=== PATIENT | male | born 1940 | race African-American/Black ===

== ENCOUNTER 2017-12-22 03:38 | Inpatient (IN) | payer OTHER ==
[~2017-12-22] VITALS: Ht 177.8 cm; Wt 106.6 kg
[~2017-12-22 03:38] MED LIST: EXTRA STRENGTH500 MG PO; NEXIUM40 M1 PO
--- NOTE | 2017-12-22 12:17 | Operative Report ---
Operative/Inv Procedure Report Surgery Date: 12/22/17 Name of Procedure: 1. Left total knee replacement 2. Right knee cortisone injection Pre-Operative Diagnosis: Bilateral primary knee DJD Post-Operative Diagnosis: Same Estimated Blood Loss: 50ml to 100ml Surgeon/Radiation Therapy Technician: Ace MCMULLEN,Nura Nixon Anesthesia: block Operative/Procedure Note Note: Description of Procedure: The patient was taken to the operating room and positively identified. After induction of spinal anesthesia and administration of appropriate pre-operative antibiotics, the patient was positioned supine on the operating room table and all bony prominences were well padded. The right knee was prepped sterilely and injected with a mixture of 2 mL of Depo -Medrol and 6 mL of half percent Marcaine. A Band-Aid was placed over the injection site and attention was then turned to the contralateral limb. A well-padded pneumatic tourniquet was placed on the left upper thigh. After performing a surgical timeout, the left lower extremity was prepped and draped in the usual sterile fashion. After exsanguination with Esmarch the tourniquet was inflated to 250mm of mercury. A standard medial parapatellar approach was made to the knee. This was carried down through skin and subcutaneous tissue to the level of the fascia. Meticulous hemostasis was maintained with Bovie electrocautery. The extensor mechanism and patellar retinaculum were opened sharply and the patella was everted. The infrapatellar fat was resected in order to improve exposure. Osteophytes were trimmed from the patella and femoral condyles and the patella was re-everted and tucked laterally. A medial release was performed and the cruciate ligaments were resected. The tibia was then subluxed anteriorly. Utilizing the appropriate extra-medullary guide, the proximal tibia was trimmed perpendicular to the long axis of the tibial shaft. Attention was then turned to the femur. After opening the medullary canal, the distal femoral cut was made in 6 degrees of valgus utilizing the appropriate intra-medullary guide. The extension gap was checked and found to be appropriate. The femur was then sized and the remainder of the femoral cuts were made with a size #4 4-in-1 femoral cutting guide. The flexion gap was checked and found to be symmetric and appropriate. The knee was then trialed with a size #4 femoral component, a size 5 tibial component and a size 13 mm polyethylene insert. The patella was trimmed to accept an A 35 patella. This yielded excellent range of motion, stability and patellar tracking. All trial components were removed and the knee was copiously irrigated with sterile saline. All components were cemented into place with [place] Simplex cement. All the components were of the Side.Cr Triathlon knee system of the above stated sizes. The knee was again irrigated after cementation. The extensor mechanism and patellar retinaculum were repaired using interrupted #1 vicryl suture. The skin was re-approximated with 2-0 vicryl and closed with harsh. A sterile dressing was applied, the tourniquet was deflated, the patient was awakened and taken to the recovery room in satisfactory condition.
--- NOTE | 2017-12-22 12:22 | Admission Core Measures ---
Acute Coronary Syndrome (CM) ACS Core Measures Acute Coronary Syndrome Diagnosis No Congestive Heart Failure (NEW) CHF Core Measures Congestive Heart Failure Diagnosis No Cerebrovascular Accident CVA Core Measures CVA/TIA Diagnosis No Venous Thromboembolism VTE Core Man (View Protocol) VTE Risk Factors Surgery No Mechanical VTE Prophylaxis d/t N/A MechProphylax Ordered No VTE Pharm Prophylaxis d/t NA PharmProphylax ordered Problem List As ranked by this Provider includes Assessment & Plan 1. Unilateral primary osteoarthritis, left knee HOME MEDS Home Med List Acetaminophen (Extra Strength Non-Aspirin) 500 MG TABLET 2 TAB PO PRN PAIN ( Reported) Esomeprazole (Nexium) 40 MG CAPSULE.DR 1 CAP PO DAILY GI (Reported)
[2017-12-22] MEDS ORDERED: ASPIRIN EC325 M2 PO (12:24)
[2017-12-22] MEDS ORDERED: DILAUDID2 M1 PO (12:24)
[2017-12-22] MEDS ORDERED: MIRALAX17 G1 PO (12:24)
[2017-12-22] MEDS ORDERED: COLACE100 M1 PO (12:24)
--- NOTE | 2017-12-22 12:28 | Patient Discharge Instructions ---
Discharge Instructions General Discharge Information You were seen/treated for: Left knee pain related to unilateral primary osteoarthritis You had these procedures: Left total knee replacement Watch for these problems: Increasing pain despite the use of pain medication Increasing redness, warmth or swelling Drainage of any type from incision Inability to bear weight on operative leg Persistent nausea and vomiting Fever greater than 101.5 degrees Do not soak the wound: Yes No bath, but you may shower: Yes Other wound care: Please keep wound clean and dry. No ointments or lotions of any type on or near incision at any time. No exceptions. Your dressing will be changed by your nurse on the second day after your surgery. Daily dry dressing changes are recommended each day thereafter. Do not soak your wound in a bath at any time until otherwise indicated by your surgeon. You may shower, please dry wound immediately after shower with a clean towel. Special Instructions: Aspirin: You are taking this medication to help prevent blood clot formation. Please take with food to protect your stomach lining. Please take as directed. Constipation: Pain medication can cause constipation. Dr. Bello has recommended that you take Colace and miralax each day. You may discontinue this medication if you develop loose stool or diarrhea. If you wish to continue this medication, it is available over the counter. If you are unable to move your bowels after several days, if you are unable to pass gas and are developing bloating, nausea, or vomiting as a result, please contact your doctor. Activity Full Activity/No Limits: No Activity Self Limited: Yes Pounds, do NOT lift more than: 10 Acute Coronary Syndrome Inclusion Criteria At DC or during hospital stay patient has or had the following: ACS DIAGNOSIS No Discharge Core Measures Meds if any: Prescribed or Continued at Discharge Meds if any: NOT Prescribed or Continued at Discharge Congestive Heart Failure Inclusion Criteria At DC or during hospital stay patient has or had the following: CHF DIAGNOSIS No Discharge Core Measures Meds if any: Prescribed or Continued at Discharge Meds if any: NOT Prescribed or Continued at Discharge Cerebrovascular accident Inclusion Criteria At DC or during hospital stay patient has or had the following: CVA/TIA Diagnosis No Discharge Core Measures Meds if any: Prescribed or Continued at Discharge Meds if any: NOT Prescribed or Continued at Discharge Venous thromboembolism Inclusion Criteria VTE Diagnosis No VTE Type NONE VTE Confirmed by (Test) NONE Discharge Core Measures - Per Current guidelines, there needs to be overlap - treatment for the first 5 days of Warfarin therapy. - If discharged on Warfarin prior to 5 days of - overlap therapy, the patient will need to be - assessed for post discharge needs including - *Post discharge parental anticoagulation - *Warfarin and/or parental anticoagulation education - *Follow up date to check INR post discharge At least 5 days overlap therapy as Inpatient No Meds if any: Prescribed or Continued at Discharge Note: Overlap Therapy is Warfarin and Anticoagulant Meds if any: NOT Prescribed or Continued at Discharge
--- NOTE | 2017-12-22 12:30 | Surgical Discharge Summary ---
Visit Information Visit Dates Admission Date: 12/22/17 Discharge Date: 12/24/17 History of Present Illness Chief Complaint: Left knee pain related to unilateral primary osteoarthritis Medical History Isolation History: Standard Surgical History Pertinent Surgical History: non-contributory Review of Systems: See H&P Hospital Course Course Attending Physician: Nura Bello MD Primary Care Physician: Joe Walker MD Hospital Course: Patient was admitted to the hospital for an elective total joint replacement. The procedure was tolerated well and patient was transferred to a general surgical floor. Diet was advanced and tolerated. The patient was evaluated and treated by physical therapy. At the time of hospital discharge, the vital signs were stable, neurovascular status was intact, and pain was controlled with the use of oral pain medications. Allergies: Coded Allergies: No Known Allergies (12/21/17) Significant Procedures: left total knee arthroplasty Disposition Summary Disposition Principal Diagnosis: Left knee unilateral primary osteoarthritis Additional Diagnosis: None Discharge Disposition: home health services Discharge Instructions General Discharge Information Code Status: Full Code Patient's Diet: Regular, advance as tolerated Patient's Activity: WBAT Follow-Up Instructions/Appts: Follow up with Dr. Bello in 6 weeks from date of surgery, please call office to arrange/confirm this appointment Medications at Discharge Discharge Medications: Continue taking these medications: Esomeprazole (Nexium) 40 MG CAPSULE.DR 1 Capsule ORAL DAILY Acetaminophen (Extra Strength Non-Aspirin) 500 MG TABLET 2 Tablet ORAL as needed for PAIN Start taking the following new medications: Aspirin (Ecotrin*) 325 MG TABLET.DR 1 Tablet ORAL TWICE DAILY Qty = 60 No Refills Hydromorphone HCl (Dilaudid) 2 MG TABLET 1-2 Tablet ORAL EVERY 4-6 HOURS NEEDED as needed for PAIN Qty = 36 No Refills Docusate Sodium (Colace) 100 MG CAPSULE 1 Capsule ORAL TWICE DAILY Qty = 14 No Refills Instructions: DISCONTINUE USE IF YOU DEVELOP LOOSE STOOL OR DIARRHEA Polyethylene Glycol 3350 (Miralax) 17 GRAM POWD.PACK 1 Packet ORAL DAILY Qty = 7 No Refills Instructions: dissolve in water, DISCONTINUE USE IF YOU DEVELOP LOOSE STOOL OR DIARRHEA
--- NOTE | 2017-12-22 15:19 | PN- Orthopedic ---
See Addendum Subjective Subjective: Postop check: Patient resting comfortably, no complaints Objective Vital Signs and I&Os Intake & Output 12/22 1600 12/22 0812/22 0000 12/21 0812/21 0000 Intake Total Output Total Balance Patient 225 lb Weight Vital signs stable, afebrile Physical Exam: Well-developed well-nourished no apparent distress. HEENT: Atraumatic, extraocular motion intact Neck: Supple, no lymphadenopathy Respiratory: No respiratory distress Extremities: No edema LEFT lower extremity dressing in place, clean dry and intact Compression wrap in place. ALPS in place Neurovascularly intact distally Bilateral calves are supple, nontender. Neuro: Alert and oriented x3 Psych: Mood affect normal, normal memory normal judgment. Skin: Warm and dry, no rash on exposed skin Assessment/Plan Assessment/Plan postop day #0 status post left total knee arthroplasty Perioperative antibiotics. Pain medication as needed. Out of bed Physical therapy, weightbearing as tolerated IV fluids Regular diet Follow a.m. labs Aspirin for DVT prophylaxis ALPS for DVT prophylaxis Regular home meds Dressing change postop day 2 Core Measures Venous Thromboembolism VTE Risk Factors Surgery No Mechanical VTE Prophylaxis d/t N/A MechProphylax Ordered No VTE Pharm Prophylaxis d/t NA PharmProphylax ordered
[2017-12-22 16:00] VITALS: BP 120/90
--- NOTE | 2017-12-22 16:42 | PN- Student ---
Trae Liao 12/22/17 1619: Subjective Subjective: POST OP CHECK PATIENT REPORTS FEELING PROGRESSIVE SORENESS OF LEFT KNEE. PAITENT REPORTS LIMITED FEELING IN LEFT LOWER EXTREMITY. PAITENT DENIES NAUSEA, VOMITING, SHORTNESS OF BREATH, CHEST PAIN OR PALPITATIONS. Objective Objective: GENERAL: NO ACUTE DISTRESS, PAITIENT ORIENTED TO TIME AND PLACE CHEST: S1 AND S2 HEARD PULMONARY: LUNGS CLEAR BILATERALLY EXTREMITIES:RANGE OF MOTION OF LEFT KNEE 0 TO 45 DEGREES. 4/5 STRENGTH OF LEFT KNEE AND HIP WITH STRAIGHT LEG RAISE. 4/5 STRENGTH WITH PLANTAR AND DORSI FLEXION OF FOOT. CAPILLARY REFILL 2 SECONDS IN LEFT TOES. GROSS SENSATION OF LOWER EXTREMITIES INTACT BILATERALLY. FULL RANGE OF MOTION AND 5/5 MOTOR STRENGTH WITH STRAIGHT LEG RAISE AND DORSIFLEXION IN RIGHT LEG. DORSALIS PEDIS AND POSTERIOR TIBALIS PULSE INCTACT ON RIGHT FOOT. CALVES SOFT AND NONTENDER BILATERALLY DRESSING IS CLEAN AND DRY. Results Results: VITALS BP: 138/80 HR: 70 RR: 20 o2 SAT: 96% ON 2L TEMP: 96.8 Assessment/Plan Assessment: LIVTIENT IS A 77 YEAR OLD MALE POST OP DAY 0 FOR LEFT TOTAL KNEE REPLACEMENT PAST MEDICAL HISTORY OF DEGENERATIVE JOINT DISEASE, PROSTATE CANCER, GI BLEED 30 YEARS AGO PATIENT IS DOING WELL Plan: CONTINUE ALPS AND ASPARIN FOR DVT PROPHYLAXIS CONTINUE PAIN CONTROL REGMINE CONTINUE CEFAZOLIN 2GM Q8 HOURS FOR 2 BAGS CONTINUE DEXAMETHASONE AND OR ZOFRAN FOR NAUSEA STOMACH PROPHYLAXIS SECONDARY TO HISTORY OF GI BLEED WEIGHT BEARING TOLERATED ACTIVITY OUT OF BED WITH ASSISTANCE Justyna Ayoub 12/24/17 0930: Assessment/Plan Assessment: pt seen by pa team, not by myself, please refer to orthopedic progress note
[2017-12-22 23:20] VITALS: BP 110/65
[2017-12-23 06:40] VITALS: BP 112/72
[2017-12-23 08:06] LABS: ABSOLUTE BASOPHIL COUNT 0 /CUMM (0.0-0.2); ABSOLUTE EOSINOPHIL COUNT 0 /CUMM (0.0-0.7); ABSOLUTE GRANULOCYTE CT 7.1 /CUMM (1.4-6.5); ABSOLUTE LYMPH COUNT 1.6 /CUMM (1.2-3.4); ABSOLUTE MONOCYTE COUNT 0.6 /CUMM (0.10-0.60); BASOPHIL % 0.2 % (0.0-2.0); EOSINOPHIL % 0 % (0-5); GRANULOCYTE % 76.1 % (42.2-75.2); HEMATOCRIT 33.7 % (42-52); MEAN CORPUSCULAR HGB 30.4 PG (27.0-31.0); MEAN CORPUSCULAR HGB CONC 33.9 G/DL (33.0-37.0); MEAN CORPUSCULAR VOLUME 89.6 FL (80.0-94.0); PLATELET COUNT 213 /CUMM (130-400); RBC DISTRIBUTION WIDTH 13.9 % (11.5-14.5); RED BLOOD CELL CT 3.76 /CUMM (4.70-6.10); WHITE BLOOD CELL COUNT 9.3 /CUMM (4.8-10.8)
--- NOTE | 2017-12-23 09:58 | PN- Orthopedic ---
Subjective Subjective: pod#1 s/p keft tka rr called for near syncope according to nurse had jsut received morphine for pain now awake alert conversive denies cp, sob, no n+v ekg done at bedside unchanged fro preop ekg troponin pending Objective Vital Signs and I&Os Vital Signs Date Time Temp Pulse Resp B/P B/P Pulse O2 O2 Flow FiO2 Mean Ox Delivery Rate 12/23 0826 74 112/72 / 0640 98.2 74 20 112/72 94 Room Air / 2320 98.0 83 20 110/65 95 Room Air / 1600 97.7 62 18 120/90 96 Room Air Intake & Output 12/23 1600 12/23 0800 12/23 0000 12/22 1600 12/22 0800 12/22 0000 Intake Total 600 300 Output Total 900 350 Balance -300 -50 Intake, IV 600 300 Output, Urine 900 350 Patient 235 lb Weight Weight Reported by Patient Measurement Method Physical Exam: cv: rrr lungs: clear abd: soft. +bs ext: drsg dry distal cms intact labs: wnl Assessment/Plan Assessment/Plan orto stable syncope likely due to morphne given just prior plan back in bed now f/u torponin wean narcs monitor yung attemp oob with pt this afternoon if improved dr mcconnell made aware Core Measures Venous Thromboembolism VTE Risk Factors Surgery No Mechanical VTE Prophylaxis d/t N/A MechProphylax Ordered No VTE Pharm Prophylaxis d/t NA PharmProphylax ordered
[2017-12-23 13:05] VITALS: BP 122/68
[2017-12-23 23:03] VITALS: BP 150/78
[2017-12-24 06:53] VITALS: BP 150/83
--- NOTE | 2017-12-24 07:24 | PN- Student ---
Trae Liao 12/24/17 0656: Subjective Subjective: PATIENT REPORTS 3-4/10 LEFT KNEE PAIN. PATIENT STATES THAT PAIN HAS IMPROVED SINCE SURGERY. PATIENT DENIES CHEST PAIN, RACING HEART BEAT, SHORTNESS OF BREATH , CALF PAIN, AND NAUSEA AND VOMMITING. BERE REPORTS HE HAS BEEN OUT OF BED "A COUPLE OF TIMES" Objective Objective: VITALS TEMP: 98.3 ORALLY PULSE RATE 83 RESPIRATORY RATE 74 BLOOD PRESSURE 112/72 PULSE OX: 95% ROOM AIR GENERAL: NO FEVER OR CHILLS. REYMUNDOT ALERT AND ORIENTED TO TIME AND PLACE. HEART: S1 AND S2 HEARD LUNGS: CLEAR BILTERALLY EXTREMITIES: FULL RANGE OF MOTION WITH RIGHT LEG AND 0 TO 30 WITH LEFT KNEE. STRENGTH WITH STRAIGHT LEG RAISE IS 5/5 FOR THE RIGHT LEG AND 2/5 FOR THE LEFT LEG. 5/5 STRENGHT WITH PLANTAR AND DORIFLEXION BILATERALLY. SENSATION IS INTACT BILATERALLY. CAPILLARY REFILL OF TOES IS 2 SECONDS BILATERLLY. DRESSING ON LEFT LEG IS CLEAN AND INTACT. Results Results: Laboratory Tests 12/23/17 0949: Troponin I < 0.01 12/23/17 0645: Anion Gap 10, Estimated GFR > 60, BUN/Creatinine Ratio 16.0, CBC w Diff NO MAN DIFF REQ, RBC 3.76 L, MCV 89.6, MCH 30.4, MCHC 33.9, RDW 13.9, MPV 9.0, Gran % 76.1 H, Lymphocytes % 16.7 L, Monocytes % 7.0, Eosinophils % 0, Basophils % 0.2, Absolute Granulocytes 7.1 H, Absolute Lymphocytes 1.6, Absolute Monocytes 0.6, Absolute Eosinophils 0, Absolute Basophils 0 Assessment/Plan Assessment: BERE IS A 77 YEAR OLD MALE PO DAY 2 FROM LEFT TOTAL KNEE REPLACEMENT. BERE IS DOING WELL WITH IMPROVING PAIN OF Left knee pain Plan: continue pain control plan continue ASA for DVT prophylaxis ambulation with assistance if bere free of syncopal episodes since stopping morphine continue home Jai Harper 12/24/17 0810: Subjective Subjective: COMFORTABLE NO C/O OF DIZZINESS SINCE YESTERDAY MORNING AMBULATED WITH PT YESTERDAY AFTERNOON DRSG CHANGED TODAY, WOUND C/D/I, NO CALF TENDERNESS, DISTAL CMS INTACT PLAN TITRATE PAIN MEDS CONT OOB WITH PT/STAIRS ASA/ALPS FOR DVT PROPHYLAXIS HOME D/C PLANNING
[2017-12-24 13:52] VITALS: BP 147/90
== END 2017-12-24 15:10 | disposition home health service (06) | DRG 470 ==
LOC: SDA 03:38 → ENRESERV 13:18 → ENTRNSPT 14:23 → EDTRNSPT 14:36 → EDTRNSPTSTS 14:36 → CMPTRNSPT 14:52 → 2NB 14:53 → ENPENDDIS 12-24 09:08 → ENTRNSPT 12-24 14:32 → CMPTRNSPT 12-24 14:55 → 2NB 12-24 15:10
PROVIDERS: Nurse Practitioner
PROC: 3E0U33Z Introduction of Anti-inflammatory into Joints, Percutaneous Approach (ICD-10-PCS; principal; 2017-12-22)
PROC: 0SRD0J9 Replacement of Left Knee Joint with Synthetic Substitute, Cemented, Open Approach (ICD-10-PCS; principal; 2017-12-22)
DX: M17.12 Unilateral primary osteoarthritis, left knee (principal); K21.9 Gastro-esophageal reflux disease without esophagitis; N40.0 Benign prostatic hyperplasia without lower urinary tract symptoms; G47.33 Obstructive sleep apnea (adult) (pediatric); F51.9 Sleep disorder not due to a substance or known physiological condition, unspecified; L30.9 Dermatitis, unspecified; Z96.642 Presence of left artificial hip joint; Z88.6 Allergy status to analgesic agent; R00.2 Palpitations; Z85.46 Personal history of malignant neoplasm of prostate
CPT/HCPCS: 2NBSP; 36592; 82436; 93005; 93010; 97110-GO; 97116-GO; 97161-GP; 97530-GO; C1713; C9290; J0131; J0690; J1100; J2405; J2550; J7042